=== PATIENT | male | born 1960 | race Caucasian/White ===

== ENCOUNTER → 2018-11-15 | Outpatient (REF) | payer OTHER ==
[2018-11-15 19:15] LABS: BLOOD UREA NITROGEN 18 MG/DL (7-18); CALCIUM LEVEL 8.5 MG/DL (8.8-10.2); CARBON DIOXIDE LEVEL 30 MEQ/L (21-32); CHLORIDE LEVEL 107 MEQ/L (98-107); CHOLESTEROL LEVEL 212 MG/DL (<200); CHOLESTEROL RISK RATIO 4.608 (<5); CREATININE FOR GFR 1.18 MG/DL (0.70-1.30); GLOMERULAR FILTRATION RATE > 60.0 (>49); GLUCOSE, FASTING 69 MG/DL (70-100); HDL CHOLESTEROL 46 MG/DL (>40); NON-HDL-C 166 MG/DL; POTASSIUM SERUM 4.1 MEQ/L (3.5-5.1); SODIUM LEVEL 141 MEQ/L (136-145); TRIGLYCERIDES LEVEL 190 MG/DL (<150)
[2018-11-15 20:12] LABS: HEMOGLOBIN A1c 5.7 %
== END ==
LOC: M SFHCPLAZ 14:09
DX: Z13.1 Encounter for screening for diabetes mellitus (principal); R03.0 Elevated blood-pressure reading, without diagnosis of hypertension; Z13.220 Encounter for screening for lipoid disorders

== ENCOUNTER → 2020-09-25 | Outpatient (REF) | payer OTHER ==
[2020-09-25 13:02] LABS: APPEARANCE, URINE HAZY (CLEAR); BACTERIA, URINE AUTO NEGATIVE (NEGATIVE); BILIRUBIN, URINE AUTO NEGATIVE (NEGATIVE); BLOOD, URINE BLOOD 1+ (NEGATIVE); COLOR, URINE YELLOW (YELLOW); GLUCOSE, URINE (UA) AUTO NEGATIVE (NEGATIVE); KETONE, URINE AUTO NEGATIVE (NEGATIVE); LEUKOCYTE ESTERASE, URINE AUTO 1+ (NEGATIVE); MUCUS, URINE SMALL (NEGATIVE); NITRITE, URINE AUTO NEGATIVE (NEGATIVE); PROTEIN, URINE AUTO NEGATIVE (NEGATIVE); RBC, URINE AUTO 6 /HPF (0-3); SQUAMOUS EPITHELIAL CELL UR AU 1 /HPF (0-6); UROBILINOGEN, URINE AUTO 0.2 mg/dL (0.0-2.0); WBC, URINE AUTO 50 /HPF (0-3)
[2020-09-25 17:52] LABS: BASO % 0.8 % (0.0-1.0); EOS # 0.2 10^3/uL (0.0-0.5); HEMATOCRIT 49.9 % (42.0-52.0); HEMOGLOBIN 16.4 g/dl (13.5-17.5); LYMPH # 1.5 10^3/uL (1.5-5.0); LYMPH % 29.7 % (24.0-44.0); MEAN CORPUSCULAR HGB CONC 32.9 g/dl (32.0-36.5); MEAN CORPUSCULAR VOLUME 94.3 fl (80.0-96.0); MONO # 0.4 10^3/uL (0.0-0.8); MONO % 8.7 % (2.0-8.0); NEUTROPHILS # 2.9 10^3/uL (1.5-8.5); NEUTROPHILS % 57.6 % (36.0-66.0); PLATELET COUNT, AUTOMATED 199 10^3/uL (150-450); RED BLOOD COUNT 5.29 10^6/uL (4.30-6.10); WHITE BLOOD COUNT 5.1 10^3/uL (4.0-10.0)
[2020-09-25 18:18] LABS: HEMOGLOBIN A1c 5.2 %
[2020-09-25 18:24] LABS: ALBUMIN 3.8 GM/DL (3.2-5.2); ALT/SGPT 23 U/L (12-78); BILIRUBIN,TOTAL 0.6 MG/DL (0.2-1.0); BLOOD UREA NITROGEN 17 MG/DL (7-18); CARBON DIOXIDE LEVEL 30 MEQ/L (21-32); CHLORIDE LEVEL 105 MEQ/L (98-107); CHOLESTEROL LEVEL 216 MG/DL (<200); CREATININE FOR GFR 1.11 MG/DL (0.70-1.30); FREE T4 0.62 NG/DL (0.76-1.46); GLOMERULAR FILTRATION RATE > 60.0 (>49); GLUCOSE, FASTING 82 MG/DL (70-100); HDL CHOLESTEROL 48 MG/DL (>40); LDL CHOLESTEROL 146 MG/DL (<100); NON-HDL-C 168 MG/DL; POTASSIUM SERUM 5.2 MEQ/L (3.5-5.1); SODIUM LEVEL 139 MEQ/L (136-145); TOTAL PROTEIN 7.2 GM/DL (6.4-8.2); TRIGLYCERIDES LEVEL 109 MG/DL (<150)
[2020-09-25 18:25] LABS: TOTAL 25(OH) VITAMIN D 18.8 NG/ML (30.0-100.0)
[2020-09-25 19:05] LABS: HEPATITIS C VIRUS ABY INDEX < 0.0 INDEX (<0.8); HIV 1&2 SCREEN CENTAUR NEGATIVE (NEGATIVE)
[2020-09-28 23:06] LABS: PSA TOTAL 75.9 ng/mL (0.0-4.0)
== END ==
LOC: M LAB REF 12:38
PROVIDERS: ATTEND Nurse Practitioner Family
DX: R03.0 Elevated blood-pressure reading, without diagnosis of hypertension (principal); Z13.1 Encounter for screening for diabetes mellitus; Z13.228 Encounter for screening for other metabolic disorders

== ENCOUNTER → 2020-10-14 | Outpatient (REF) | payer OTHER | LOC: M SMT 13:11 | PROVIDERS: ATTEND Urology | DX: N32.9 Bladder disorder, unspecified (principal) ==

== ENCOUNTER → 2020-10-19 | Outpatient (CLI) | payer OTHER ==
[~2020-10-19] MED LIST: ISOVUE-370 76% 100ML VIAL As Ordered ONE
--- NOTE | 2020-10-19 09:48 | REP ---
INDICATION: MICROSCOPIC HEMATURIA. COMPARISON: None TECHNIQUE: Axial precontrast, contrast-enhanced and delayed images from the lung bases to the pubic symphysis using 100 cc Isovue 370 intravenous contrast material. . This CT examination was performed using the following dose reduction techniques: Automated exposure control, adjustment of mA and/or kv according to the patient's size, and the use of iterative reconstruction technique. FINDINGS: Liver, spleen, pancreas, gallbladder, and bilateral adrenal glands are normal. Few small benign appearing left peripelvic renal cysts are identified. The urinary tract system is otherwise unremarkable. Moderate hiatal hernia. The small and large bowel appears normal. No evidence for obstruction or acute inflammatory process. Normal terminal ileum and appendix are identified in the right lower quadrant. Pelvis demonstrates normal bladder and age-appropriate prostate/seminal vesicles. No ascites. No free air. No intraperitoneal or retroperitoneal adenopathy. Abdominal aorta and vasculature appear normal. Musculoskeletal structures are intact and without acute osseous abnormality. IMPRESSION: Moderate hiatal hernia. No acute abdominopelvic pathology appreciated. Few small benign left renal peripelvic cysts. <Electronically signed by Esteban Fraser > 10/19/20 [id number]
== END ==
LOC: M RAD 08:18
PROVIDERS: ATTEND Urology
DX: R31.29 Other microscopic hematuria (principal); N28.1 Cyst of kidney, acquired
CPT/HCPCS: 74178; Q9967

== ENCOUNTER → 2020-10-20 | Outpatient (CLI) | payer OTHER ==
--- NOTE | 2020-10-20 13:19 | REPPI ---
INDICATION: elevated PSA. COMPARISON: None. TECHNIQUE: Transrectal prostate sonography. FINDINGS: Trans rectal prostate sonography demonstrates unremarkable seminal vesicles. Prostate gland is heterogeneous, with calcifications and cystic changes noted. Glandular dimensions are measured at 4.1 x 2.5 x 4.8 cm with a calculated glandular volume of 25.7 ml. There are 2 prostate nodules. A 0.5 cm nodule is noted at the apex. A 0.4 cm nodule is noted on the left mid gland. Transrectal sonographic guidance is provided to Dr. Forbes who performed trans rectal ultrasound guided needle biopsy procedure. IMPRESSION: Transrectal prostate sonographic findings as above. <Electronically signed by Evaristo Handy > 10/20/20 [id number]
== END ==
LOC: M SMT PRO 08:41
PROVIDERS: ATTEND Urology
DX: C61 Malignant neoplasm of prostate (principal)
CPT/HCPCS: 55700; 76872; 76942; G0416

== ENCOUNTER → 2020-11-20 | Outpatient (CLI) | payer OTHER ==
--- NOTE | 2020-11-20 14:27 | REP ---
INDICATION: PROSTATE CA. COMPARISON: None. TECHNIQUE/RADIOTRACER AND DOSE: Following the intravenous administration of 22.0 mCi technetium 99 M MDP, patient's whole-body is imaged in multiple projections. FINDINGS: There is no compelling scintigraphic evidence of metastatic disease in the axial or appendicular skeleton. There is mild increased uptake in the inferior right calcaneus likely representing stress related changes in the bone or spurring at the insertion of the plantar tendon. There is mild increased uptake in the lower cervical spine compatible with degenerative changes. Renal and bladder activity are seen. IMPRESSION: No compelling scintigraphic evidence of osseous metastases in the axial or appendicular skeleton. <Electronically signed by Rubin Higgins > 11/20/20 [id number]
== END ==
LOC: M RAD 11:15
PROVIDERS: ATTEND Urology
DX: C61 Malignant neoplasm of prostate (principal)
CPT/HCPCS: 78306; A9503

== ENCOUNTER → 2020-11-27 | Outpatient (REF) | payer OTHER | LOC: M PLALAB 14:53 | PROVIDERS: ATTEND Urology | DX: C61 Malignant neoplasm of prostate (principal) ==

== ENCOUNTER → 2020-12-08 | Outpatient (CLI) | payer OTHER ==
--- NOTE | 2020-12-08 12:53 | RADONC.CN ---
Radiation Oncology Hx/Consult Radiation Oncology Consult Date of Service: December 08, 2020 Pt Identifier Javier Abraham is a 60 year old male with high risk prostate cancer cT2c [place] 4+3=7 (07/04 cores+) PSA 75.9. He has been started on ADT with Dr. Forbes and is seen today for consideration of RT. Diagnosis/Treatment History Oncologic History Followed by Dr. Forbes for elevated PSA/abnormal GEOFF PSA 09/25/20 75.9 11/27/20 8.2 (post Firmagon) Underwent biopsy on 10/20/20 [place] 4+3=7 12/ cores+ 10/19/20 CT pelvis negative. 11/20/20 Bone scan negative. 10/28/20 11/27/20 45 mg Eligard (Andrei) IPSS 0 AALIYAH 3 Interval History Reports he feels well. No urinary complaints. 1x nocturia rarely. No concerns about stream or emptying. Has regular BMs without bleeding. Has no interest in sex. 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 Appetite and energy levels good. No hot flashes. Past Medical History: HTN Past Surgical History: None Family History: No family cancer history Social History: Never smoker Never drinker Review of Systems General: Reports: Normal Appetite Constitutional: Denies: Chills, Fever, Night Sweats Eyes: Denies: Pain, Vision change HEENT: Denies: Head Aches, Dysphagia, Sore Throat Skin: Denies: Rash, Lesions, Bruising Pulmonary: Denies: Dyspnea, Cough Cardiovascular: Denies: Chest Pain, Palpitations, Edema Gastrointestinal: Denies: Nausea, Vomiting, Abdominal Pain, Diarrhea Genitourinary: Denies: Dysuria, Frequency, Incontinence Hematologic: Denies: Bruising, Petecchia, Enlarged Lymph Nodes Musculoskeletal: Denies: Neck pain, Back pain Neurological: Denies: Weakness, Numbness, Incoordination Psych: Reports: Mood Normal; Denies: Memory Issues, Thoughts of Self Harm Vital Signs Ht 65" Wt 170 lbs BMI 28 T 98P 64 RR 18 BP 152/91 O2 99% Pain 0 Fatigue 0 General Exam: Positive: Alert, Cooperative, No Acute Distress Eye Exam: Positive: PERRLA, EOMI ENT EXAM: Positive: Mucous membr. moist/pink, Pharynx Normal Neck Exam: Negative: Thyromegaly, Lymphadenopathy Chest Exam: Positive: Normal air movement; Negative: Rales, Rhonchi, Wheezing Heart Exam: Positive: Rate Normal, Regular Rhythm Abdomen Exam: Positive: Soft; Negative: Tenderness, Mass Male Exam: Positive: Normal Genital Exam, Normal Sphincter Tone; Negative: Normal Prostate (Prostate is nodular BL, very firm 3+) Extremity Exam: Negative: Edema, Tenderness Skin Exam: Positive: Nl turgor and temperature; Negative: Rash Neuro Exam: Positive: Normal Gait, Normal Speech, Cranial Nerves 3-12 NL Psych Exam: Positive: Mental status NL, Mood NL, Memory Intact Diagnostic and Laboratory Diagnostic Review Radiologic images, relevant labs and pathology reports were personally reviewed and discussed with Mr. Abraham. Assessment and Plan Impression Mr. Abraham is a 60 year old male with high risk prostate cancer cT2c [place] 4+3=7 (12/ cores+) PSA 75.9. He has been started on ADT with Dr. Forbes and is seen today for consideration of RT. Stage Stage IIIA [id number] [place] 4+3=7 PSA 75.9 Performance Status ECOG 0 Plan We had an extensive discussion with Mr. Abraham regarding the diagnosis at hand and available therapeutic options. He is a fit man, with minimal medical history and excellent urinary and bowel function at baseline. He has localized high risk disease and has begun ADT with Dr. Forbes. I explained the general recommendation for 18-24 months of ADT along with EBRT. In his case because of the high volume of disease in the prostate and the non- trivial risk of occult jenna metastases per the Joseph tables, I will treat his LN in addition. I will give 78 Gy in 39 fractions with VMAT. Prior to EBRT I favor fiducial marker placement for daily localization as well as a SpaceOAR placement to mitigate the risk of acute and late rectal toxicity. We discussed the indication for SpaceOAR and the nature of the procedure as well as potential adverse effects. He wishes to proceed with this. We discussed the logistics of receiving radiation therapy in detail including the need for a 1-time planning session. This would occur 1-2 weeks after fiducial marker and SpaceOAR placement We reviewed the side effects of treatment including fatigue, irritative voiding symptoms, loose bowel movements, and late rectal toxicities. After discussing the risks, benefits and alternatives to radiation therapy, Mr. Abraham was amenable to pursuing radiotherapy. All questions were answered to the patient's satisfaction. We instructed the patient that if there were any questions,concerns or changes in clinical status in the interim to contact us. Recommendations EBRT 78 Gy in 39 fractions with VMAT Fiducial marker and SpaceOAR placement Simulation pending procedure ADT per Dr. Forbes Billing Statement Total time of [47] minutes was spent preparing for the visit [3], obtaining HPI [5], examining the patient [3], reviewing diagnostic tests [4], discussing management options [20], coordinating care [5], and writing this note [7]. MIKEY PHELAN MD December 08, 2020 12:53
== END ==
LOC: M ONCR 08:06
PROVIDERS: ATTEND General Practice
DX: C61 Malignant neoplasm of prostate (principal)

== ENCOUNTER → 2021-01-14 | Outpatient (CLI) | payer OTHER ==
[~2021-01-14] MED LIST changes: +CIPR-249 PO; -ISOVUE-370 76% 100ML VIAL As Ordered ONE; +LIDOCAINE 2% MDV 20ML VIAL XX ONE; +LIDOCAINE VISCOUS 2% SOLN 15ML UDC XX ONE; +LORA1TAB4 PO
--- NOTE | 2021-01-14 15:12 | ROOPDOC ---
[facility] Report Of Operation Report of Operation [facility] Radiation Oncology SpaceOAR & fiducial marker procedure note Name: Javier Abraham D.OHeshamB: 56 Procedure diagnosis: C61.0 Prostate cancer Procedure date/time: 01/14/21 Physician: Mikey Phelan MD Implant(s): Fiducials (2 seeds per needle): Qfix [id number] Lot# [id number] Exp 12/22/2023 Qty 2 SpaceOAR: [id number] Lot# [id number] Exp 06/10/22 Qty 1 Description of procedure: Informed consent for placement of SpaceOAR and fiducial marker seeds (4) was obtained pre-procedure. A timeout was completed. The patient was placed in the high lithotomy position and a rectal exam with 2% viscous lidocaine was completed. The rectal vault was empty of stool. A chlorhexidine prep of the perineal skin was completed. The trans-rectal ultrasound probe was introduced, the prostate and the rectal bulb were well visualized. 2% lidocaine was infiltrated in the skin and soft tissues of the perineum via a 23 Ga spinal needle under ultrasound guidance. 12cc of local was used. Patient tolerated the block well. Next, fiducial marker seeds were placed via pre-loaded 18 Ga needles under ultrasound guidance. 2 seeds were placed in the left base and apex, respectively. 2 seeds were placed in the right base and apex, respectively. A hydro-dissection of the space between the prostate and rectum was conducted by locating Denonvilliers fascia and injecting 12 cc of isotonic saline through an 18 Ga needle into the potential space there to develop a plane for SpaceOAR implant. Once the hydro-dissection was complete, the needle was withdrawn to mid-gland and the implant needle was then checked in the sagittal and transverse planes for optimal position and once verified, the SpaceOAR implant was placed. The implant was noted to have excellent positioning from base to near-apex. The needle was withdrawn and the ultrasound probe was removed from the rectum. Post procedure vital signs were WNL. The patient tolerated the procedure well without significant discomfort. EBL: <1cc Disposition: Simulation for radiation therapy will occur in the next 1-2 weeks The patient will complete antibiotic prophylaxis this evening MIKEY PHELAN MD Jan 14, 2021 15:12
== END ==
LOC: M ONCR 13:22
PROVIDERS: ATTEND General Practice
DX: C61 Malignant neoplasm of prostate (principal)
CPT/HCPCS: 55874; 55876; A4648; C1889

== ENCOUNTER 2021-02-19 08:21 | Outpatient (RCR) | payer OTHER ==
[~2021-02-19 08:21] MED LIST changes: -LIDOCAINE 2% MDV 20ML VIAL XX ONE; -LIDOCAINE VISCOUS 2% SOLN 15ML UDC XX ONE
== END 2021-02-20 ==
LOC: M ONCR 08:21
PROVIDERS: ATTEND General Practice
DX: C61 Malignant neoplasm of prostate (principal)

== ENCOUNTER → 2021-03-23 | Outpatient (RCR) | payer OTHER | LOC: M ONCR 02-22 08:26 | PROVIDERS: ATTEND General Practice | DX: C61 Malignant neoplasm of prostate (principal) ==

== ENCOUNTER 2021-04-14 08:26 | Outpatient (RCR) | payer OTHER | END 2021-04-22 | LOC: M ONCR 08:26 | PROVIDERS: ATTEND General Practice | DX: C61 Malignant neoplasm of prostate (principal) ==

== ENCOUNTER → 2021-06-11 | Outpatient (CLI) | payer OTHER | LOC: M PLALAB 10:57 | PROVIDERS: ATTEND Urology | DX: C61 Malignant neoplasm of prostate (principal) ==

== ENCOUNTER → 2021-07-08 | Outpatient (CLI) | payer OTHER | LOC: M ONCR 08:56 | PROVIDERS: ATTEND General Practice | DX: C61 Malignant neoplasm of prostate (principal); Z92.3 Personal history of irradiation; Z79.899 Other long term (current) drug therapy ==

== ENCOUNTER → 2022-01-06 | Outpatient (CLI) | payer OTHER ==
[2022-01-06 10:02] LABS: TESTOSTERONE < 7 NG/DL (241-827)
== END ==
LOC: M ONCR 08:44
PROVIDERS: ATTEND General Practice
DX: C61 Malignant neoplasm of prostate (principal); Z92.3 Personal history of irradiation; Z79.818 Long term (current) use of other agents affecting estrogen receptors and estrogen levels; Z79.899 Other long term (current) drug therapy
CPT/HCPCS: 84153; 84403; G0463

== ENCOUNTER → 2022-11-16 | Outpatient (REF) | payer OTHER ==
[2022-11-16 15:24] LABS: BASO % 0.5 % (0.0-1.0); EOS # 0.1 10^3/uL (0.0-0.5); EOS % 3.4 % (0.0-3.0); HEMATOCRIT 43.9 % (42.0-52.0); HEMOGLOBIN 14.1 g/dl (13.5-17.5); LYMPH # 0.7 10^3/uL (1.5-5.0); LYMPH % 17.2 % (24.0-44.0); MEAN CORPUSCULAR HEMOGLOBIN 30.7 pg (27.0-33.0); MEAN CORPUSCULAR HGB CONC 32.1 g/dl (32.0-36.5); MEAN CORPUSCULAR VOLUME 95.4 fl (80.0-96.0); MONO # 0.3 10^3/uL (0.0-0.8); MONO % 8.4 % (2.0-8.0); NEUTROPHILS # 2.7 10^3/uL (1.5-8.5); NEUTROPHILS % 70.2 % (36.0-66.0); PLATELET COUNT, AUTOMATED 217 10^3/uL (150-450); WHITE BLOOD COUNT 3.8 10^3/uL (4.0-10.0)
[2022-11-16 15:29] LABS: ALBUMIN 3.7 G/DL (3.2-5.2); ALKALINE PHOSPHATASE 87 U/L (46-116); ALT/SGPT 38 U/L (7.0-40); AST/SGOT 20 U/L (<34); BILIRUBIN,TOTAL 0.4 MG/DL (0.3-1.2); BLOOD UREA NITROGEN 17 MG/DL (9-23); CARBON DIOXIDE LEVEL 30 MMOL/L (20-31); CHLORIDE LEVEL 107 MMOL/L (98-107); CHOLESTEROL LEVEL 223 MG/DL (<200); CREATININE FOR GFR 0.96 MG/DL (0.70-1.30); GLOMERULAR FILTRATION RATE > 60.0 (>49); GLUCOSE, FASTING 89 MG/DL (74-106); HDL CHOLESTEROL 60.2 MG/DL (>40); LDL CHOLESTEROL 145.4 MG/DL (<100); NON-HDL-C 162.8 MG/DL; POTASSIUM SERUM 4.3 MMOL/L (3.5-5.1); SODIUM LEVEL 141 MMOL/L (136-145); TOTAL PROTEIN 6.7 G/DL (5.7-8.2); TRIGLYCERIDES LEVEL 87 MG/DL (<150)
[2022-11-16 15:30] LABS: TOTAL 25(OH) VITAMIN D 26.4 NG/ML (20.0-100.0)
[2022-11-16 15:31] LABS: THYROID STIMULATING HORMONE 5.059 uIU/ML (0.55-4.78)
[2022-11-16 17:00] LABS: HEMOGLOBIN A1c 5.4 % (4.0-6.0)
== END ==
LOC: M LAB REF 12:14
PROVIDERS: ATTEND Nurse Practitioner Family
DX: E66.3 Overweight (principal); E55.9 Vitamin D deficiency, unspecified; R53.83 Other fatigue; E03.9 Hypothyroidism, unspecified; Z12.5 Encounter for screening for malignant neoplasm of prostate

== ENCOUNTER 2022-11-29 11:22 | Emergency (ER) | payer OTHER ==
[~2022-11-29] VITALS: Ht 165.1 cm; Wt 79.1 kg
[~2022-11-29 11:22] MED LIST changes: +LORA1TAB23 PO; -LORA1TAB4 PO
[2022-11-29] MEDS ORDERED: ACETAMINOPHEN 500 MG TAB PO ONE (13:35)
[2022-11-29 13:59] LABS: BASO % 0.5 % (0.0-1.0); EOS # 0.1 10^3/uL (0.0-0.5); EOS % 2.1 % (0.0-3.0); HEMATOCRIT 39.4 % (42.0-52.0); HEMOGLOBIN 13.1 g/dl (13.5-17.5); LYMPH # 0.9 10^3/uL (1.5-5.0); LYMPH % 23.6 % (24.0-44.0); MEAN CORPUSCULAR HEMOGLOBIN 31.1 pg (27.0-33.0); MEAN CORPUSCULAR HGB CONC 33.2 g/dl (32.0-36.5); MEAN CORPUSCULAR VOLUME 93.6 fl (80.0-96.0); MONO # 0.4 10^3/uL (0.0-0.8); NEUTROPHILS # 2.5 10^3/uL (1.5-8.5); NEUTROPHILS % 64.5 % (36.0-66.0); PLATELET COUNT, AUTOMATED 210 10^3/uL (150-450); RED BLOOD COUNT 4.21 10^6/uL (4.30-6.10); WHITE BLOOD COUNT 3.9 10^3/uL (4.0-10.0)
[2022-11-29 14:34] LABS: BLOOD UREA NITROGEN 18 MG/DL (9-23); CALCIUM LEVEL 8.4 MG/DL (8.3-10.6); CARBON DIOXIDE LEVEL 28 MMOL/L (20-31); CHLORIDE LEVEL 107 MMOL/L (98-107); CREATININE FOR GFR 0.89 MG/DL (0.70-1.30); GLOMERULAR FILTRATION RATE > 60.0 (>49); GLUCOSE, FASTING 92 MG/DL (74-106); SODIUM LEVEL 141 MMOL/L (136-145)
[2022-11-29 15:05] VITALS: BP 182/102
== END 2022-11-29 15:15 | disposition home or self-care (01) ==
LOC: M ED 11:22
DX: I10 Essential (primary) hypertension (principal); C61 Malignant neoplasm of prostate

== ENCOUNTER → 2022-12-14 | Outpatient (CLI) | payer OTHER ==
[~2022-12-14] MED LIST changes: +FLOM0.4C39 PO
== END ==
LOC: M ONCR 08:27
PROVIDERS: ATTEND General Practice
DX: C61 Malignant neoplasm of prostate (principal); Z92.3 Personal history of irradiation; Z79.818 Long term (current) use of other agents affecting estrogen receptors and estrogen levels; Z79.899 Other long term (current) drug therapy; Z71.2 Person consulting for explanation of examination or test findings; R35.1 Nocturia

== ENCOUNTER → 2023-02-07 | Outpatient (REF) | payer OTHER | LOC: M LAB REF 11:51 | PROVIDERS: ATTEND Nurse Practitioner Family | DX: E03.9 Hypothyroidism, unspecified (principal) ==

== ENCOUNTER 2023-07-04 08:14 | Day surgery (SDC) | payer MEDICARE, MEDICAID ==
[~2023-07-04] VITALS: Ht 165.1 cm; Wt 76.7 kg
[~2023-07-04 08:14] MED LIST changes: +LEVO25TA5 PO; +LOSA25TA13 PO; +NS 1,000 ML IV ONE
[2023-07-04] MEDS ORDERED: propofoL 200 MG/20 ML VIAL As Ordered ONE (10:58)
[2023-07-04 11:12] VITALS: TEMP 96.5
[2023-07-04 11:35] VITALS: BP 168/88; O2SAT 96
== END 2023-07-04 11:46 | disposition home or self-care (01) ==
LOC: M OPP 08:14
PROVIDERS: ATTEND Internal Medicine Gastroenterology
DX: Z12.11 Encounter for screening for malignant neoplasm of colon (principal); D12.6 Benign neoplasm of colon, unspecified; K57.30 Diverticulosis of large intestine without perforation or abscess without bleeding; K64.4 Residual hemorrhoidal skin tags; K64.8 Other hemorrhoids; Z79.83 Long term (current) use of bisphosphonates; Z79.890 Hormone replacement therapy; Z79.899 Other long term (current) drug therapy

== ENCOUNTER → 2023-08-08 | Outpatient (REF) | payer MEDICARE, MEDICAID, OTHER ==
[~2023-08-08] MED LIST changes: -NS 1,000 ML IV ONE
[2023-08-08 14:30] LABS: CHOLESTEROL RISK RATIO 4.27 (<5); HDL CHOLESTEROL 45.1 MG/DL (>40); LDL CHOLESTEROL 123.9 MG/DL (<100); NON-HDL-C 147.9 MG/DL
[2023-08-08 14:33] LABS: THYROID STIMULATING HORMONE 6.303 uIU/ML (0.55-4.78)
== END ==
LOC: M LAB REF 12:31
PROVIDERS: ATTEND Nurse Practitioner Family
DX: E03.9 Hypothyroidism, unspecified (principal); E78.5 Hyperlipidemia, unspecified

== ENCOUNTER → 2023-09-29 | Outpatient (REF) | payer MEDICARE, MEDICAID, OTHER ==
[2023-09-29 12:14] LABS: CHOLESTEROL RISK RATIO 3.75 (<5); HDL CHOLESTEROL 45.5 MG/DL (>40); LDL CHOLESTEROL 108.7 MG/DL (<100); NON-HDL-C 125.5 MG/DL
[2023-09-29 12:16] LABS: THYROID STIMULATING HORMONE 3.975 uIU/ML (0.55-4.78)
== END ==
LOC: M LAB REF 11:20
PROVIDERS: ATTEND Nurse Practitioner Family
DX: E78.5 Hyperlipidemia, unspecified (principal); E03.9 Hypothyroidism, unspecified

== ENCOUNTER → 2023-12-06 | Outpatient (REF) | payer MEDICARE, MEDICAID, OTHER | LOC: M LAB REF 12:03 | PROVIDERS: ATTEND Nurse Practitioner Family | DX: E03.9 Hypothyroidism, unspecified (principal) ==

== ENCOUNTER → 2024-01-08 | Outpatient (CLI) | payer MEDICARE, OTHER | LOC: M LAB 07:57 | PROVIDERS: ATTEND Urology | DX: C61 Malignant neoplasm of prostate (principal) ==

== ENCOUNTER → 2024-02-16 | Outpatient (REF) | payer MEDICARE, OTHER ==
[2024-02-16 14:01] LABS: ALBUMIN 3.5 G/DL (3.2-5.2); BILIRUBIN,DIRECT 0.1 MG/DL (<0.4); BILIRUBIN,TOTAL 0.4 MG/DL (0.3-1.2); CHOLESTEROL RISK RATIO 3.79 (<5); HDL CHOLESTEROL 36.1 MG/DL (>40); LDL CHOLESTEROL 78.1 MG/DL (<100); NON-HDL-C 100.9 MG/DL; TOTAL PROTEIN 6.3 G/DL (5.7-8.2)
[2024-02-16 14:03] LABS: THYROID STIMULATING HORMONE 2.742 uIU/ML (0.55-4.78)
== END ==
LOC: M LAB REF 12:38
PROVIDERS: ATTEND Nurse Practitioner Family
DX: E78.5 Hyperlipidemia, unspecified (principal); E03.9 Hypothyroidism, unspecified

== ENCOUNTER → 2024-07-08 | Outpatient (REF) | payer MEDICARE, OTHER | LOC: M LAB REF 13:35 | PROVIDERS: ATTEND Nurse Practitioner Family | DX: E03.9 Hypothyroidism, unspecified (principal) ==

== ENCOUNTER → 2024-10-25 | Outpatient (CLI) | payer MEDICARE | LOC: M ONCR 12:45 | PROVIDERS: ATTEND General Practice | DX: C61 Malignant neoplasm of prostate (principal); Z92.3 Personal history of irradiation; Z92.29 Personal history of other drug therapy; Z79.899 Other long term (current) drug therapy | CPT/HCPCS: 36415; 84153; G0463 ==

== ENCOUNTER → 2025-01-29 | Outpatient (CLI) | payer MEDICARE, MEDICAID ==
[~2025-01-29] MED LIST changes: -FLOM0.4C39 PO; +TAMS-18 PO
== END ==
LOC: M LAB 15:15
PROVIDERS: ATTEND Urology
DX: C61 Malignant neoplasm of prostate (principal)